=== PATIENT | female | born 1980 | race Caucasian/White ===

== ENCOUNTER 2023-10-08 03:38 | Emergency (ER) | payer OTHER ==
[2023-10-08] MEDS: guaiFENesin/Dextromethorphan 100-10 MG/5 ML Soln 5 ML Cup PO PRN (04:48)
== END 2023-10-08 04:57 | disposition home or self-care (01) ==
LOC: KA.ED 03:38
DX: R05.1 Acute cough (principal); Z88.8 Allergy status to other drugs, medicaments and biological substances; Z91.030 Bee allergy status
CPT/HCPCS: 99283